=== PATIENT | male | born 2000 | race African-American/Black ===

== ENCOUNTER 2020-09-14 03:52 | Emergency (ER) | payer SELFPAY ==
[2020-09-14] MEDS ORDERED: Bacitracin 1 PK ONE (05:10)
[2020-09-14] MEDS ORDERED: Acetaminophen 500 MG TAB ONE (05:14)
== END 2020-09-14 07:30 | disposition home or self-care (01) ==
LOC: ERS 03:52
DX: S01.01XA Laceration without foreign body of scalp, initial encounter (principal); Y04.0XXA Assault by unarmed brawl or fight, initial encounter
CPT/HCPCS: 12001; 70450; 70486; 72125; 93005